=== PATIENT | male | born 1945 | race Caucasian/White ===

== ENCOUNTER 2019-05-14 16:42 | Emergency (ER) | payer MEDICARE, OTHER, SELFPAY ==
[2019-05-14 16:34] VITALS: BP 135/82; PULSE 97; RESP 20; TEMP 37; O2SAT 99
--- NOTE | 2019-05-14 17:04 | W.ED.GENADLT ---
HPI - General Adult General: Chief complaint: General Medical Stated complaint: abnormal labs Time Seen by Provider: 05/14/19 16:51 History of Present Illness: HPI narrative: Patient arrived by EMS from a [facility] with a history of abnormal labs. Patient has been in the hospital last week had a colonoscopy and EGD done because of bleeding no source was found. Patient has no complaints or problems at this time denies any black tarry stool. Patient continued to have some bright red blood in the stool Onset (ago): week(s) Associated symptoms: Deny chest pain, dyspnea, headache(s), nausea, rash or vomiting Review of Systems Narrative: Patient with a history of A. fib Const: Denies: fever, chills or body aches Eyes: Denies: change in vision or blurry vision ENMT: Denies: throat pain or nasal congestion Card: Denies: chest pain or shortness of breath on exertion Resp: Denies: shortness of breath, productive cough or non-productive cough GI: Denies: abdominal pain, nausea or vomiting : Denies: difficulty urinating Musc: Denies: extremity pain Skin/Breast: Denies: rash Neuro: Denies: headache Psych: Denies: anxiety or depression [place]/Lymph: Denies: easy bruising PFSH ED PFSH: Statuses (acute, chronic, etc) shown below reflect problem list status as previously entered and may not be historically accurate Social History Smoking and tobacco status: never smoked Physical Exam Narrative: EXAM NARRATIVE: Patient has 1+ pitting edema to both bilateral lower extremities. Is obese hard to determine whether he is distended or not. Skin is somewhat pale. Const: COMMON NORMALS: no apparent distress, average body habitus and oriented x3 HENMT: COMMON NORMALS: normocephalic HEAD & SCALP: normal to inspection and normocephalic FACE & SINUS: normal facial exam Eye: COMMON NORMALS: conjunctivae normal GENERAL EYE: normal appearance of both eyes CONJUNCTIVA: Yes conjunctivae normal Neck/C-Spine: COMMON NORMALS: no JVD Chest: COMMONS NORMALS: inspection of chest normal Resp: COMMON NORMALS: normal respiratory effort and clear to auscultation bilaterally AUSCULTATION: clear to auscultation bilaterally Cardio: COMMON NORMALS: no JVD, regular rate and regular rhythm RATE: regular rate RHYTHM: regular rhythm GI: COMMON NORMALS: normal to inspection, nondistended, normoactive bowel sounds Extremity: COMMON NORMALS: normal to inspection and full ROM Neuro: COMMON NORMALS: oriented x3 Course Vital Signs: Vital signs: Vital Signs Temperature 98.6 F 05/14/19 16:34 Pulse Rate 97 05/14/19 16:34 Respiratory Rate 20 H 05/14/19 16:34 Blood Pressure 135/82 05/14/19 16:34 Pulse Oximetry 99 05/14/19 16:34 MDM - General Adult MDM Narrative: Medical decision making narrative: Discussed case with Dr. Valles agrees with care plan discharge patient back to correction. Lab Data: Labs: Lab Results 05/14/19 05/14/19 05/14/19 Range/Units 17:12 17:12 17:12 WBC 7.9 (4.0-10.0) 10^3/ uL RBC 2.95 L (4.1-5.3) 10^6/u L Hgb 8.3 L (11.7-16.6) g/dL Hct 26.3 L (42.0-52.0) % MCV 89.2 (80-94) fL MCH 28.1 (28.0-34.0) pg MCHC 31.6 (30.0-36.0) g/dL RDW 18.0 H (12.1-15.1) % Plt Count 379 (130-400) 10^3/c mm MPV 10.9 H (7.4-10.4) fL Neut % (Auto) 68.9 % Lymph % (Auto) 17.0 % [place] % (Auto) 10.9 % Eos % (Auto) 2.4 % Baso % (Auto) 0.4 % Neut # (Auto) 5.5 (1.8-7.7) 10^3/u L Lymph # (Auto) 1.4 (0.8-4.8) 10^3/u L [place] # (Auto) 0.9 (0.2-0.9) 10^3/u L Eos # (Auto) 0.2 (0.0-0.8) 10^3/u L Baso # (Auto) 0.0 (0.0-0.1) 10^3/u L Nucleated RBC % (a uto) 0 % Nucleated RBCs # 0.0 /100WBC PT 14.90 H (10.5-13.3) SECO NDS INR 1.13 (0.8-1.2) Sodium 135 L (136-145) mmol/L Potassium 2.8 L* (3.5-5.1) mmol/L Chloride 88 L (98-107) mmol/L Carbon Dioxide 32 H (22-29) mmol/L Anion Gap 17.8 (5-19) BUN 28 H (8-23) mg/dL Creatinine 1.3 H (0.7-1.2) mg/dL Glucose 92 (74-106) mg/dL Calcium 8.6 L (8.8-10.2) mg/Dl Total Bilirubin 0.4 (0.15-1.2) mg/dL AST 20 (0-40) U/L ALT 12 (0-41) U/L Alkaline Phosphata se 80 (40-130) IU/L Total Protein 7.5 (6.6-8.7) g/dL Albumin 3.4 L (3.5-5.2) g/dL Globulin 4.1 (1.3-4.6) g/dL EKG Data^: EKG 1: EKG interpretation date: 05/14/19 EKG interpretation time: 17:49 Interpretation: Atrial fib, right bundle branch block, left anterior fascicular block, rate 73 bpm QRS is 153 ms Discharge Plan Discharge Clinical Impression: Chronic hypokalemia, Atrial fibrillation, chronic, Urinary retention due to benign prostatic hyperplasia, Hematochezia CHF (congestive heart failure) Qualifiers: Heart failure type: combined systolic and diastolic Heart failure chronicity: chronic Qualified Code(s): I50.42 - Chronic combined systolic (congestive) and diastolic (congestive) heart failure Anemia Qualifiers: Anemia type: iron deficiency Iron deficiency anemia type: chronic blood loss Qualified Code(s): D50.0 - Iron deficiency anemia secondary to blood loss (chronic) Condition: Stable Discharge Orders: Discharge Order (Routine); Ordered 05/14/19 Ordered By: Gopal Cox Referrals: Dianne Fulton MD [Primary Care Provider] - Discharge Diet: Usual diet Discharge Activity: Resume usual activity Patient Instructions: Hypokalemia (ED) Activity Restrictions/Additional Instructions: Follow-up with medical provider as directed. Take medications as prescribed. Return to the ER are your medical provider if condition worsens. Read and understand discharge instructions. Increase potassium to 20 mEq twice a day recheck potassium on Saturday follow-up as scheduled for chronic blood loss. Patient discharged with Boone catheter and leg bag in place due to chronic prostate problems and urinary retention patient is to follow-up with Dr. Mehta as scheduled Coding Level of Care Code ED Mail Deliverer for [place] [facility] Exam Problem Focused
--- NOTE | 2019-05-14 17:18 | ECG_ITS ---
Measurements Intervals [place] Rate: 93 P: DC: 0 QRS: -60 QRSD: 153 T: 40 QT: 409 QTc: 510 ATRIAL FIBRILLATION RIGHT BUNDLE BRANCH BLOCK [120+ ms QRS DURATION, UPRIGHT V1, 40+ ms S IN I/aVL/V4/V5/V6] LEFT ANTERIOR FASCICULAR BLOCK [QRS AXIS <= -45, QR IN I, RS IN II] Compared to ECG 02/26/2019 23:40:13 Left anterior fascicular block now present Aberrant conduction of supraventricular beat(s) no longer present Ventricular premature complex(es) no longer present Left-axis deviation no longer present Electronically Signed On 05-14-2019 19:00:26 PATTERN PAINTER by Christi Max M.D. [email or web address]
--- NOTE | 2019-05-14 17:18 | XR_ITS ---
WS: [id number] CHEST XRAY TECHNIQUE: Portable chest. CLINICAL INFORMATION: admission COMPARISON: February 26, 2019 FINDINGS: Heart: Cardiomegaly Lungs: Lungs are clear. No consolidation or pleural effusion. Bones: Normal visualized bony structures. XR/XR chest 1V portable [id number] IMPRESSION: No acute chest findings
[2019-05-14 17:21] LABS: Basophils % 0.4 %; Eosinophils # 0.2 10^3/uL (0.0-0.8); Eosinophils % 2.4 %; Hematocrit 26.3 % (42.0-52.0); Hemoglobin 8.3 g/dL (11.7-16.6); Lymphocytes # 1.4 10^3/uL (0.8-4.8); Mean Corpuscular HGB Conc 31.6 g/dL (30.0-36.0); Mean Corpuscular Hemoglobin 28.1 pg (28.0-34.0); Mean Corpuscular Volume 89.2 fL (80-94); Mean Platelet Volume 10.9 fL (7.4-10.4); Monocytes # 0.9 10^3/uL (0.2-0.9); Monocytes % 10.9 %; Neutrophils # 5.5 10^3/uL (1.8-7.7); Neutrophils % 68.9 %; Nucleated Red Blood Cells % 0 %; Platelet Count 379 10^3/cmm (130-400); Red Blood Count 2.95 10^6/uL (4.1-5.3); White Blood Count 7.9 10^3/uL (4.0-10.0)
[2019-05-14 17:31] LABS: INR 1.13 (0.8-1.2)
[2019-05-14 17:34] LABS: Alanine Aminotransferase 12 U/L (0-41); Albumin Level 3.4 g/dL (3.5-5.2); Alkaline Phosphatase 80 IU/L (40-130); Anion Gap 17.8 (5-19); Aspartate Amino Transferase 20 U/L (0-40); Blood Urea Nitrogen 28 mg/dL (8-23); Calcium 8.6 mg/Dl (8.8-10.2); Carbon Dioxide 32 mmol/L (22-29); Chloride 88 mmol/L (98-107); Globulin 4.1 g/dL (1.3-4.6); Glucose 92 mg/dL (74-106); Sodium 135 mmol/L (136-145); Total Bilirubin 0.4 mg/dL (0.15-1.2); Total Protein 7.5 g/dL (6.6-8.7)
[2019-05-14 17:46] LABS: Potassium 2.8 mmol/L (3.5-5.1)
[2019-05-14 19:04] VITALS: BP 115/71; PULSE 68; RESP 18; O2SAT 96
--- NOTE | 2019-05-15 09:43 | DCPLANNER ---
lean manager had message to schedule a follow up appointment scheduled for patient with Dr. Mehta. lean manager called the office of Dr. Mehta, spoke with Kellie. lean manager gave clinic patients information, was told that patients information would be printed and given to [place] for review. Clinic will call patient with appointment information, child welfare caseworker will call clinic for appointment information.
--- NOTE | 2019-05-17 18:12 | W.ED.GENADLT ---
HPI - General Adult General: Chief complaint: General Medical Stated complaint: abnormal labs Time Seen by Provider: 05/14/19 16:51 History of Present Illness: HPI narrative: Low potassium Onset (ago): day(s) Associated symptoms: Deny chest pain, dyspnea, headache(s), nausea, rash or vomiting Review of Systems Const: Denies: fever, chills or body aches Eyes: Denies: change in vision or blurry vision ENMT: Denies: throat pain or nasal congestion Card: Denies: chest pain or shortness of breath on exertion Resp: Denies: shortness of breath, productive cough or non-productive cough GI: Denies: abdominal pain, nausea or vomiting : Denies: difficulty urinating Musc: Denies: extremity pain Skin/Breast: Denies: rash Neuro: Denies: headache Psych: Denies: anxiety or depression Ketan/Lymph: Denies: easy bruising PFSH ED PFSH: Statuses (acute, chronic, etc) shown below reflect problem list status as previously entered and may not be historically accurate Medical History (Updated 06/16/19 @ 17:24 by Aspen Meyers APRN) BPH NOS w ur obs/LUTS Postprocedural fossa navicularis urethral stricture Urinary retention Social History Smoking and tobacco status: former smoker Alcohol intake: never Marital status: Current occupational status: retired History of recent travel: No Physical Exam Const: COMMON NORMALS: no apparent distress, average body habitus and oriented x3 HENMT: COMMON NORMALS: normocephalic HEAD & SCALP: normal to inspection and normocephalic FACE & SINUS: normal facial exam Eye: COMMON NORMALS: conjunctivae normal GENERAL EYE: normal appearance of both eyes CONJUNCTIVA: Yes conjunctivae normal Neck/C-Spine: COMMON NORMALS: no JVD Chest: COMMONS NORMALS: inspection of chest normal Resp: COMMON NORMALS: normal respiratory effort and clear to auscultation bilaterally AUSCULTATION: clear to auscultation bilaterally Cardio: COMMON NORMALS: no JVD, regular rate and regular rhythm RATE: regular rate RHYTHM: regular rhythm GI: COMMON NORMALS: normal to inspection, nondistended, normoactive bowel sounds : BLADDER/KIDNEY EXAM: Yes other (Boone in place) Extremity: COMMON NORMALS: normal to inspection and full ROM Neuro: COMMON NORMALS: oriented x3 Course Vital Signs: Vital signs: Vital Signs Temperature 98.6 F 05/14/19 16:34 Pulse Rate 68 05/14/19 19:04 Respiratory Rate 18 05/14/19 19:04 Blood Pressure 115/71 05/14/19 19:04 Pulse Oximetry 96 05/14/19 19:04 MDM - General Adult MDM Narrative: Medical decision making narrative: Discussed case with the ER doc Lab Data: Labs: Lab Results 05/14/19 05/14/19 05/14/19 Range/Units 17:12 17:12 17:12 WBC 7.9 (4.0-10.0) 10^3/ uL RBC 2.95 L (4.1-5.3) 10^6/u L Hgb 8.3 L (11.7-16.6) g/dL Hct 26.3 L (42.0-52.0) % MCV 89.2 (80-94) fL MCH 28.1 (28.0-34.0) pg MCHC 31.6 (30.0-36.0) g/dL RDW 18.0 H (12.1-15.1) % Plt Count 379 (130-400) 10^3/c mm MPV 10.9 H (7.4-10.4) fL Neut % (Auto) 68.9 % Lymph % (Auto) 17.0 % [place] % (Auto) 10.9 % Eos % (Auto) 2.4 % Baso % (Auto) 0.4 % Neut # (Auto) 5.5 (1.8-7.7) 10^3/u L Lymph # (Auto) 1.4 (0.8-4.8) 10^3/u L [place] # (Auto) 0.9 (0.2-0.9) 10^3/u L Eos # (Auto) 0.2 (0.0-0.8) 10^3/u L Baso # (Auto) 0.0 (0.0-0.1) 10^3/u L Nucleated RBC % (a uto) 0 % Nucleated RBCs # 0.0 /100WBC PT 14.90 H (10.5-13.3) SECO NDS INR 1.13 (0.8-1.2) Sodium 135 L (136-145) mmol/L Potassium 2.8 L* (3.5-5.1) mmol/L Chloride 88 L (98-107) mmol/L Carbon Dioxide 32 H (22-29) mmol/L Anion Gap 17.8 (5-19) BUN 28 H (8-23) mg/dL Creatinine 1.3 H (0.7-1.2) mg/dL Glucose 92 (74-106) mg/dL Calcium 8.6 L (8.8-10.2) mg/Dl Total Bilirubin 0.4 (0.15-1.2) mg/dL AST 20 (0-40) U/L ALT 12 (0-41) U/L Alkaline Phosphata se 80 (40-130) IU/L Total Protein 7.5 (6.6-8.7) g/dL Albumin 3.4 L (3.5-5.2) g/dL Globulin 4.1 (1.3-4.6) g/dL Discharge Plan Discharge Clinical Impression: Chronic hypokalemia, CHF (congestive heart failure), Anemia, Atrial fibrillation, chronic, Urinary retention due to benign prostatic hyperplasia, Hematochezia Condition: Stable Prescriptions: No Action spironolactone [Aldactone] 25 mg tablet 25 mg PO DAILY RF: 0 albuterol sulfate 90 mcg/actuation aerosol powdr breath activated 2 inh INHALATION Q6H PRNRF: 0 atenolol 50 mg tablet 50 mg PO DAILY RF: 0 ferrous sulfate 325 mg (65 mg iron) tablet 325 mg PO DAILY RF: 0 finasteride 5 mg tablet 5 mg PO DAILY RF: 0 tamsulosin [Flomax] 0.4 mg capsule 0.4 mg PO DAILY RF: 0 gabapentin 100 mg capsule 100 mg PO TID RF: 0 hydrocodone-acetaminophen [[place]] 10-325 mg tablet 1 tab PO BID PRNRF: 0 furosemide [Lasix] 80 mg tablet 80 mg PO DAILY RF: 0 Levemir FlexTouch U-100 Insuln 100 unit/mL (3 mL) insulin pen 100 unit SUBCUT DAILY RF: 0 liraglutide 0.6 mg/0.1 mL (18 mg/3 mL) pen injector 0.6 mg SUBCUT DAILY RF: 0 pregabalin [Lyrica] 200 mg capsule 200 mg PO DAILY RF: 0 multivitamin Capsule 1 cap PO DAILY RF: 0 nitroglycerin 0.3 mg tablet, sublingual 0.3 mg SUBLINGUAL Q5M PRNRF: 0 pantoprazole [Protonix] 40 mg tablet,delayed release (DR/EC) 40 mg PO DAILY RF: 0 Discharge Orders: Discharge Order (Routine); Ordered 05/14/19 Ordered By: Gopal Cox Referrals: Dianne Fulton MD [Primary Care Provider] - Patient Instructions: Hypokalemia (ED) Activity Restrictions/Additional Instructions: Follow-up with medical provider as directed. Take medications as prescribed. Return to the ER are your medical provider if condition worsens. Read and understand discharge instructions. Increase potassium to 20 mEq twice a day recheck potassium on Saturday follow-up as scheduled for chronic blood loss. Patient discharged with Boone catheter and leg bag in place due to chronic prostate problems and urinary retention patient is to follow-up with Dr. Mehta as scheduled Discharge Date/Time: 05/14/19 19:06 Coding Level of Care Code ED District Manager [employer]s Sales for [place] [facility]
--- NOTE | 2019-05-26 13:15 | DCPLANNER ---
Patient has a follow up appointment for Sunday, June 16, 2019 at 10:[address] Mehta. Clinic will contact patient with appointment information.
--- NOTE | 2019-06-26 15:33 | DCPLANNER ---
Patient did attend appointment scheduled for 06.16.[address] Mehta.
== END 2019-05-14 19:06 ==
PROVIDERS: Nurse Practitioner Family; Emergency Provider Emergency Medicine; Family Provider Family Medicine; PCP Family Medicine
DX: E87.6 Hypokalemia (principal); I48.20 Chronic atrial fibrillation, unspecified; N40.1 Benign prostatic hyperplasia with lower urinary tract symptoms; R33.8 Other retention of urine; K92.1 Melena; D50.0 Iron deficiency anemia secondary to blood loss (chronic); I50.42 Chronic combined systolic (congestive) and diastolic (congestive) heart failure
CPT/HCPCS: 36415; 51702; 71045; 80053; 85025; 85610; 93005; 99282

== ENCOUNTER → 2019-06-16 12:04 | Outpatient (BNVA) | payer MEDICARE, OTHER, SELFPAY | PROVIDERS: Family Provider Family Medicine; PCP Family Medicine; Visit Provider Nurse Practitioner Family | DX: N40.1 Benign prostatic hyperplasia with lower urinary tract symptoms (principal); R33.9 Retention of urine, unspecified; N99.115 Postprocedural fossa navicularis urethral stricture | CPT/HCPCS: 81001; 84153; 87077; 87086; 87186 ==

== ENCOUNTER → 2019-07-07 11:42 | Outpatient (BNVA) | payer MEDICARE, OTHER, SELFPAY | PROVIDERS: Family Provider Family Medicine; PCP Family Medicine; Visit Provider Family Medicine | DX: G62.9 Polyneuropathy, unspecified (principal); E11.9 Type 2 diabetes mellitus without complications; Z79.4 Long term (current) use of insulin; G63 Polyneuropathy in diseases classified elsewhere; I87.2 Venous insufficiency (chronic) (peripheral) | CPT/HCPCS: 80053; 83036; 85025 ==

== ENCOUNTER → 2019-08-18 15:20 | Outpatient (BNVA) | payer MEDICARE, OTHER, SELFPAY | PROVIDERS: Family Provider Family Medicine; PCP Family Medicine; Visit Provider Family Medicine | DX: E11.9 Type 2 diabetes mellitus without complications (principal); Z79.4 Long term (current) use of insulin; D50.0 Iron deficiency anemia secondary to blood loss (chronic); I87.2 Venous insufficiency (chronic) (peripheral); G63 Polyneuropathy in diseases classified elsewhere | CPT/HCPCS: 80048; 85025 ==

== ENCOUNTER → 2019-11-03 17:16 | Outpatient (BNVA) | payer MEDICARE, OTHER, SELFPAY | PROVIDERS: Family Provider Family Medicine; PCP Family Medicine; Visit Provider Family Medicine | DX: E11.9 Type 2 diabetes mellitus without complications (principal); I10 Essential (primary) hypertension; Z79.4 Long term (current) use of insulin; I50.9 Heart failure, unspecified; G62.9 Polyneuropathy, unspecified; G63 Polyneuropathy in diseases classified elsewhere | CPT/HCPCS: 36415; 80053; 83036; 85025 ==

== ENCOUNTER → 2020-03-15 13:38 | Outpatient (BNVA) | payer MEDICARE, OTHER, SELFPAY | PROVIDERS: Family Provider Family Medicine; PCP Family Medicine; Visit Provider Urology | DX: N40.1 Benign prostatic hyperplasia with lower urinary tract symptoms (principal); N99.115 Postprocedural fossa navicularis urethral stricture; R33.9 Retention of urine, unspecified | CPT/HCPCS: 81003 ==

== ENCOUNTER → 2020-03-22 14:58 | Outpatient (BNVA) | payer MEDICARE, OTHER, SELFPAY | PROVIDERS: Family Provider Family Medicine; PCP Family Medicine; Visit Provider Family Medicine | DX: E11.9 Type 2 diabetes mellitus without complications (principal); Z79.4 Long term (current) use of insulin; I10 Essential (primary) hypertension; F17.211 Nicotine dependence, cigarettes, in remission; Z71.89 Other specified counseling | CPT/HCPCS: 80053; 83036; 85025 ==

== ENCOUNTER → 2020-09-06 10:17 | Outpatient (BNVA) | payer MEDICARE, OTHER, SELFPAY | PROVIDERS: Family Provider Family Medicine; PCP Family Medicine; Visit Provider Nurse Practitioner Family | DX: L03.90 Cellulitis, unspecified (principal); M19.041 Primary osteoarthritis, right hand; I70.8 Atherosclerosis of other arteries; M77.11 Lateral epicondylitis, right elbow | CPT/HCPCS: 73080; 73130; 80053; 84145; 84550; 85025; 85651; 86140 ==

== ENCOUNTER → 2021-01-17 11:04 | Outpatient (BNVA) | payer MEDICARE, OTHER, SELFPAY | PROVIDERS: Family Provider Family Medicine; PCP Family Medicine; Visit Provider Family Medicine | DX: I10 Essential (primary) hypertension (principal); E11.9 Type 2 diabetes mellitus without complications; Z79.4 Long term (current) use of insulin; M10.9 Gout, unspecified; I87.2 Venous insufficiency (chronic) (peripheral); K21.9 Gastro-esophageal reflux disease without esophagitis; G63 Polyneuropathy in diseases classified elsewhere | CPT/HCPCS: 80053; 83036; 84550; 85025 ==

== ENCOUNTER → 2021-03-15 13:27 | Outpatient (BNVA) | payer MEDICARE, OTHER, SELFPAY | PROVIDERS: Family Provider Family Medicine; PCP Family Medicine; Visit Provider Urology | DX: Z12.5 Encounter for screening for malignant neoplasm of prostate (principal) | CPT/HCPCS: G0103 ==

== ENCOUNTER → 2021-08-21 14:22 | Outpatient (BNVA) | payer MEDICARE, OTHER, SELFPAY | PROVIDERS: Family Provider Family Medicine; PCP Family Medicine; Visit Provider Family Medicine | DX: E11.9 Type 2 diabetes mellitus without complications (principal); I10 Essential (primary) hypertension; G62.9 Polyneuropathy, unspecified; Z00.00 Encounter for general adult medical examination without abnormal findings | CPT/HCPCS: 80053; 83036; 85025 ==

== ENCOUNTER → 2021-11-14 09:54 | Outpatient (BNVA) | payer MEDICARE, OTHER, SELFPAY | PROVIDERS: Family Provider Family Medicine; PCP Family Medicine; Visit Provider Podiatrist Foot & Ankle Surgery | DX: Q66.71 Congenital pes cavus, right foot (principal); Z79.4 Long term (current) use of insulin; L84 Corns and callosities; Q66.72 Congenital pes cavus, left foot; E11.8 Type 2 diabetes mellitus with unspecified complications; L60.3 Nail dystrophy | CPT/HCPCS: 11056; 11721 ==

== ENCOUNTER → 2021-12-19 15:39 | Outpatient (BNVA) | payer MEDICARE, OTHER, SELFPAY | PROVIDERS: Family Provider Family Medicine; PCP Family Medicine; Visit Provider Family Medicine | DX: M10.9 Gout, unspecified (principal); E11.9 Type 2 diabetes mellitus without complications; Z79.4 Long term (current) use of insulin | CPT/HCPCS: 80048; 84550 ==

== ENCOUNTER → 2022-04-17 10:45 | Outpatient (BNVA) | payer MEDICARE, OTHER, SELFPAY | PROVIDERS: Family Provider Family Medicine; PCP Family Medicine; Visit Provider Family Medicine | DX: I10 Essential (primary) hypertension (principal); E11.9 Type 2 diabetes mellitus without complications; M10.9 Gout, unspecified; Z79.4 Long term (current) use of insulin | CPT/HCPCS: 80053; 83036 ==

== ENCOUNTER → 2022-10-03 16:16 | Outpatient (BNVA) | payer MEDICARE, OTHER, SELFPAY | PROVIDERS: Family Provider Family Medicine; PCP Family Medicine; Visit Provider Family Medicine | DX: I10 Essential (primary) hypertension (principal); Z79.4 Long term (current) use of insulin; E11.9 Type 2 diabetes mellitus without complications; G63 Polyneuropathy in diseases classified elsewhere | CPT/HCPCS: 80053; 83036; 85025 ==

== ENCOUNTER → 2023-02-14 14:11 | Outpatient (BNVA) | payer MEDICARE, OTHER, SELFPAY | PROVIDERS: Family Provider Family Medicine; PCP Family Medicine; Visit Provider Family Medicine | DX: E11.8 Type 2 diabetes mellitus with unspecified complications (principal); Z79.4 Long term (current) use of insulin; G63 Polyneuropathy in diseases classified elsewhere; R33.9 Retention of urine, unspecified | CPT/HCPCS: 80053; 83036 ==

== ENCOUNTER → 2023-03-14 13:54 | Outpatient (BNVA) | payer MEDICARE, OTHER, SELFPAY | PROVIDERS: Family Provider Family Medicine; PCP Family Medicine; Visit Provider Family Medicine | DX: E11.9 Type 2 diabetes mellitus without complications (principal); R41.82 Altered mental status, unspecified; G62.9 Polyneuropathy, unspecified; E03.9 Hypothyroidism, unspecified; E53.8 Deficiency of other specified B group vitamins; I10 Essential (primary) hypertension | CPT/HCPCS: 82962; 85025 ==

== ENCOUNTER 2023-03-19 14:17 | Outpatient (CLI) | payer MEDICARE, OTHER, SELFPAY ==
--- NOTE | 2023-03-19 15:00 | CT_ITS ---
WS: [id number] CT HEAD TECHNIQUE: Noncontrast CT of the head obtained from the skullbase to the vertex. CLINICAL INFORMATION: R41.82 - Altered mental status, unspecified COMPARISON: CT 2019 DLP: 1108.[address] scans at [facility] use at least one of these dose optimization techniques: automated e xposure control; mA and/or kV adjustment per patient size (includes targeted exams where dose is matc hed to clinical indication); or iterative reconstruction. FINDINGS: No evidence of intracranial hemorrhage or mass effect. Ventricular system and basal cisterns are elliott nt. Mild small vessel changes with moderate parenchymal volume loss. Intracranial vascular calcificat ion. No extra-axial fluid collections. No evidence of mass or mass effect. Paranasal sinuses and mastoid air cells are well aerated. .Normal visualized soft tissues. Normal pos terior nasopharynx. IMPRESSION: 1. No evidence of intracranial hemorrhage or mass effect. 2. Mild small vessel changes. Moderate parenchymal volume loss slightly progressed compared to 2019. 3. Intracranial vascular calcification. 4. 5. No acute intracranial findings.
== END 2023-03-19 14:18 | disposition home or self-care (01) ==
LOC: RAD 14:17
PROVIDERS: Family Provider Family Medicine; PCP Family Medicine; Visit Provider Family Medicine
DX: R41.82 Altered mental status, unspecified (principal); I67.2 Cerebral atherosclerosis
CPT/HCPCS: 70450

== ENCOUNTER → 2023-03-20 15:16 | Outpatient (BNVA) | payer MEDICARE, OTHER, SELFPAY | PROVIDERS: Family Provider Family Medicine; PCP Family Medicine; Visit Provider Family Medicine | DX: E11.9 Type 2 diabetes mellitus without complications (principal) | CPT/HCPCS: 80048; 81000 ==

== ENCOUNTER → 2023-05-23 14:56 | Outpatient (BNVA) | payer MEDICARE, OTHER, SELFPAY | PROVIDERS: Family Provider Family Medicine; PCP Family Medicine; Visit Provider Family Medicine | DX: E11.9 Type 2 diabetes mellitus without complications (principal); Z79.4 Long term (current) use of insulin; I10 Essential (primary) hypertension; I50.33 Acute on chronic diastolic (congestive) heart failure | CPT/HCPCS: 80053; 85025 ==